=== PATIENT | male | born 2000 | race Caucasian/White ===

== ENCOUNTER 2022-03-19 01:11 | Emergency (ER) | payer OTHER ==
[2022-03-19] MEDS ORDERED: FAMOTIDINE 20 MG/50 ML IVPB 20 MG/50 ML MG IVPB ONE ×2 (01:56→02:13)
[2022-03-19] MEDS ORDERED: MAG HYDROX/AL HYDROX/SIMETH -MYLANTA- ORAL SUSPENSION PO ONE (01:56)
[2022-03-19] MEDS ORDERED: SODIUM CHLORIDE 0.9% 500 ML INFUS.BAG IV ONE (02:25)
[2022-03-19] MEDS ORDERED: ONDANSETRON 4 MG/2 ML VIAL IVPUSH ONE (02:25)
[2022-03-19] MEDS ORDERED: ACETAMINOPHEN 1000 MG/100 ML BAG IVPB ONE (02:25)
[2022-03-19 02:32] VITALS: BP 133/77; PULSE 105; RESP 19; TEMP 98.1; BMI 34.9
[2022-03-19] MEDS ORDERED: ACETAMINOPHEN INJECTION 100 ML IVPB ONE (02:43)
[2022-03-19] MEDS ORDERED: ONDANSETRON 4 MG/2 ML VIAL ONE (02:43)
[2022-03-19 03:03] LABS: BASO % 0.3 % (0-2.0); EOS % 1.7 % (0-4.5); HEMOGLOBIN 14.2 GM/dL (11.7-16.9); LYMPH % 18.1 % (8-40); MCH 28.3 pg (25.7-33.7); MCHC 33.1 g/dl (32.0-35.9); MEAN CELL VOLUME 85.7 fl (80-96); MEAN PLT VOLUME 8.6 fl (7.5-11.1); MONO % 9.6 % (3.8-10.2); NEUT % 70.3 % (42.8-82.8); PLATELET COUNT 296 10^3/uL (134-434); RBC 5.01 M/mm3 (4.00-5.60); RDW 13.2 % (11.9-15.9); WHITE BLOOD COUNT 8.5 K/mm3 (4.0-10.0)
[2022-03-19 03:10] LABS: INR 1.2 (0.83-1.09); PROTHROMBIN TIME (PATIENT) 13.8 SEC (9.7-13.0)
[2022-03-19 03:13] LABS: ACTIVATED PTT 31.8 SECONDS (25.2-36.5)
[2022-03-19 03:25] LABS: CALCIUM 8.9 mg/dL (8.5-10.1)
[2022-03-19 03:26] LABS: ALBUMIN 3.5 g/dl (3.4-5.0)
[2022-03-19 03:28] LABS: CREATININE 0.8 mg/dL (0.55-1.3)
[2022-03-19 03:30] LABS: BILIRUBIN,TOTAL 0.3 mg/dL (0.2-1); TOT PROT 7.6 g/dl (6.4-8.2)
[2022-03-19] MEDS ORDERED: DEXAMETHASONE 4 MG TABLET (FP) PO ONE (04:01)
[2022-03-19] MEDS ORDERED: SUCRALFATE 1 GM/10 ML UNIT DOSE CUPS PO ONE (04:02)
[2022-03-19] MEDS ORDERED: DEXAMETHASONE 4 MG TABLET (FP) ONE (04:05)
[2022-03-19] MEDS ORDERED: SUCRALFATE 1 GM TABLET (FP) ONE (04:05)
== END 2022-03-19 04:19 | disposition home or self-care (01) ==
LOC: JER 01:11
PROC: 3E033GC Introduction of Other Therapeutic Substance into Peripheral Vein, Percutaneous Approach (ICD-10-PCS; principal; 2022-03-19)
DX: K22.6 Gastro-esophageal laceration-hemorrhage syndrome (principal)
CPT/HCPCS: 0241U-QW; 36415; 74018-TC-FY; 80053; 83690; 85025; 85610; 85730; 86850; 86900; 86901; 87651; 99284-25

== ENCOUNTER 2022-03-25 20:39 | Emergency (ER) | payer OTHER ==
[2022-03-25 20:47] VITALS: BP 150/78; PULSE 140; RESP 20; TEMP 99.4; BMI 34.9
[2022-03-25] MEDS ORDERED: SODIUM CHLORIDE 0.9% 500 ML INFUS.BAG IV ONE (20:53)
[2022-03-25] MEDS ORDERED: PANTOPRAZOLE SODIUM 40 MG VIAL IVPUSH ONE (20:54)
[2022-03-25] MEDS ORDERED: ONDANSETRON 4 MG/2 ML VIAL IVPB ONE (20:54)
[2022-03-25] MEDS ORDERED: FAMOTIDINE 20 MG/50 ML IVPB 20 MG/50 ML MG IVPB ONE (20:59)
[2022-03-25] MEDS ORDERED: ACETAMINOPHEN 1000 MG/100 ML BAG IVPB ONE (21:09)
[2022-03-25] MEDS ORDERED: PANTOPRAZOLE SODIUM 40 MG VIAL ONE (21:10)
[2022-03-25] MEDS ORDERED: ONDANSETRON 4 MG/2 ML VIAL ONE (21:10)
[2022-03-25 21:19] LABS: BASO % 0.7 % (0-2.0); EOS % 3.2 % (0-4.5); HEMATOCRIT 41.8 % (35.4-49); HEMOGLOBIN 13.8 GM/dL (11.7-16.9); LYMPH % 22.6 % (8-40); MCH 28.3 pg (25.7-33.7); MCHC 33.1 g/dl (32.0-35.9); MEAN CELL VOLUME 85.6 fl (80-96); MEAN PLT VOLUME 8.7 fl (7.5-11.1); MONO % 7.3 % (3.8-10.2); NEUT % 66.2 % (42.8-82.8); PLATELET COUNT 312 10^3/uL (134-434); RBC 4.88 M/mm3 (4.00-5.60); RDW 13.6 % (11.9-15.9); WHITE BLOOD COUNT 9.1 K/mm3 (4.0-10.0)
[2022-03-25] MEDS ORDERED: ACETAMINOPHEN INJECTION 100 ML IVPB ONE (21:19)
[2022-03-25 21:39] LABS: ALBUMIN 3.7 g/dl (3.4-5.0); BLOOD UREA NITROGEN 10.2 mg/dL (7-18); CALCIUM 8.5 mg/dL (8.5-10.1)
[2022-03-25 21:43] LABS: CREATININE 0.7 mg/dL (0.55-1.3)
[2022-03-25 21:44] LABS: BILIRUBIN,TOTAL 0.3 mg/dL (0.2-1); TOT PROT 7.3 g/dl (6.4-8.2)
[2022-03-25] MEDS ORDERED: MAGNESIUM SULF 50% (8.12 MEQ/2 ML-1 GM VIAL) IVPB ONE (22:27)
[2022-03-25] MEDS ORDERED: MAGNESIUM SULFATE IN WATER 2 GM/50 ML IVPB IVPB ONE (22:31)
== END 2022-03-25 22:47 | disposition home or self-care (01) ==
LOC: JER 20:39
PROC: 3E0333Z Introduction of Anti-inflammatory into Peripheral Vein, Percutaneous Approach (ICD-10-PCS; principal; 2022-03-25)
PROC: 3E033GC Introduction of Other Therapeutic Substance into Peripheral Vein, Percutaneous Approach (ICD-10-PCS; 2022-03-25)
PROC: 3E033GC Introduction of Other Therapeutic Substance into Peripheral Vein, Percutaneous Approach (ICD-10-PCS; 2022-03-25)
PROC: 3E033GC Introduction of Other Therapeutic Substance into Peripheral Vein, Percutaneous Approach (ICD-10-PCS; 2022-03-25)
DX: K80.20 Calculus of gallbladder without cholecystitis without obstruction (principal)
CPT/HCPCS: 36415; 76705-TC; 80053; 83690; 85025; 86850; 86900; 86901; 99284-25

== ENCOUNTER 2022-04-02 04:43 | Emergency (ER) | payer OTHER ==
[2022-04-02 05:02] VITALS: BMI 34.0
[2022-04-02] MEDS ORDERED: SODIUM CHLORIDE 0.9% 500 ML INFUS.BAG IV ONE (05:10)
[2022-04-02] MEDS ORDERED: PIPERACILLIN/TAZOB 3.375 GM 3.375 GM in DEXTROSE 5%-WATER - 50 ML IVPB ONE (05:23)
[2022-04-02] MEDS ORDERED: PIPERACILLIN/TAZOB 3.375 GM 3.375 GM/50 ML BAG IVPB ONE (05:59)
[2022-04-02 06:47] LABS: HEMATOCRIT 39.2 % (35.4-49); HEMOGLOBIN 13.3 GM/dL (11.7-16.9); MCH 29.1 pg (25.7-33.7); MEAN CELL VOLUME 85.7 fl (80-96); MEAN PLT VOLUME 10.4 fl (7.5-11.1); PLATELET COUNT 252 10^3/uL (134-434); RBC 4.57 M/mm3 (4.00-5.60); RDW 13.5 % (11.9-15.9); WHITE BLOOD COUNT 7.4 K/mm3 (4.0-10.0)
[2022-04-02 06:54] LABS: INR 1.03 (0.83-1.09); PROTHROMBIN TIME (PATIENT) 11.8 SEC (9.7-13.0)
[2022-04-02 07:17] LABS: CALCIUM 8.8 mg/dL (8.5-10.1)
[2022-04-02 07:18] LABS: ALBUMIN 3.8 g/dl (3.4-5.0); BLOOD UREA NITROGEN 8.4 mg/dL (7-18)
[2022-04-02 07:21] LABS: CREATININE 0.7 mg/dL (0.55-1.3)
[2022-04-02 07:22] LABS: BILIRUBIN,TOTAL 0.3 mg/dL (0.2-1); TOT PROT 7.2 g/dl (6.4-8.2)
[2022-04-02 09:47] VITALS: BP 93/54; PULSE 78; RESP 18; TEMP 98.5
== END 2022-04-02 11:03 | disposition home or self-care (01) ==
LOC: JER 04:43
PROC: 3E033GC Introduction of Other Therapeutic Substance into Peripheral Vein, Percutaneous Approach (ICD-10-PCS; principal; 2022-04-02)
DX: K80.50 Calculus of bile duct without cholangitis or cholecystitis without obstruction (principal)
CPT/HCPCS: 36415; 71045-TC-FY; 76705-TC; 80053; 83690; 85025; 85610; 86850; 86900; 86901; 93005; 93010; 99285-25; C9803-CS; U0003; U0005